=== PATIENT | male | born 1985 | race Caucasian/White ===

== ENCOUNTER 2016-05-22 08:02 | Outpatient (CLI) | payer BC ==
[2016-05-22 08:22] LABS: BASOPHILS % 0.5 (0.0-1.5); EOSINOPHILS % 2.8 % (0.0-6.8); LYMPHOCYTES # 1.5 # k/uL (0.6-4.0); MEAN CORPUSCULAR HEMOGLOBIN 30.9 pg (28.0-34.0); MONOCYTES # 0.2 # k/uL (0.0-0.9); MONOCYTES % 5.1 % (0.0-11.0); NEUTROPHILS # 1.7 # k/uL (1.4-7.7)
[2016-05-22 08:44] LABS: eGFR (African) > 60; eGFR (Non-African) > 60
[2016-05-22 19:21] LABS: LIPASE 27 U/L (13-60)
== END 2016-05-22 08:03 ==
LOC: LAB 08:02
PROVIDERS: ATTEND Physician Assistant
DX: R10.12 Left upper quadrant pain (principal); Z00.00 Encounter for general adult medical examination without abnormal findings
CPT/HCPCS: 36415; 80053; 80061; 82150; 83690; 85025

== ENCOUNTER 2016-05-29 16:34 | Outpatient (CLI) | payer BC ==
[2016-05-29 16:50] LABS: BASOPHILS % 0.6 (0.0-1.5); EOSINOPHILS % 2.1 % (0.0-6.8); LYMPHOCYTES # 2.3 # k/uL (0.6-4.0); MEAN CORPUSCULAR HEMOGLOBIN 30.7 pg (28.0-34.0); MONOCYTES # 0.3 # k/uL (0.0-0.9); MONOCYTES % 5.5 % (0.0-11.0); NEUTROPHILS # 2.3 # k/uL (1.4-7.7)
== END 2016-05-29 16:35 ==
LOC: LAB 16:34
PROVIDERS: ATTEND Family Medicine
DX: D70.9 Neutropenia, unspecified (principal)
CPT/HCPCS: 36415; 85025

== ENCOUNTER 2016-06-23 07:58 | Day surgery (SDC) | payer BC ==
[2016-06-23] MEDS ORDERED: PROPOFOL 200 MG/20 ML VIAL IV ONE (08:00)
[2016-06-23] MEDS ORDERED: LACTATED RINGERS 1,000 ML IV.SOLN IV ONE (08:00)
[2016-06-23] MEDS ORDERED: SALINE FLUSH 10 ML DISP.SYRIN IVF ONE (08:00)
[2016-06-23] MEDS ORDERED: LIDOCAINE HCL/PF 2% 100 MG/5 ML VIAL IJ ONE (08:00)
--- NOTE | 2016-06-24 11:53 | GI Report ---
REFERRING PHYSICIAN: Dr. Yolanda Seals [employer] MEMBER: Al Lubin MD PROCEDURE MEDICATION: Propofol as per anesthesia. INDICATIONS: Patient is a 31-year-old who has been having a lot of epigastric discomfort. He says he gets bloated and distended and has some burning. He does take an occasional Advil. On weekends, he might have 4 or 5 mixed drinks. He denies tobacco or chewing tobacco. He denies vomiting. He denies blood in his stool. He denies changes in his bowel habits. Because of persistent discomfort and acid foods may tend to make it worse, he is referred for an upper endoscopy. PROCEDURE PERFORMED: Endoscopy with biopsies. PROCEDURE: An Olympus video endoscope was passed to the esophagus under direct visualization. He has grade 1 esophagitis of the GE junction. The stomach is entered. He has kind of a lax GE junction. In the body and antrum, he has moderate gastritis with some erythema and edema and friability. No ulceration. Biopsies were taken for KALANI test and for pathology. Duodenal bulb, first and second part of the duodenum, the villi grossly looks normal. The patient tolerated the procedure well. FINDINGS: 1. Moderate gastritis. Biopsies are pending. 2. Grade 1 esophagitis. RECOMMENDATIONS: 1. I would kind of cut the alcohol on weekends in half. 2. I will have him take a PPI before meals and an antacid at bedtime. 3. Follow up biopsies for H. Pylori particularly. 4. Avoid Advil. See if he could take acetaminophen if he has headaches or pain. 5. His chemistries were normal. 6. Would possibly cut back on gluten in the diet. 7. Follow up with Dr. Seals. cc: Dr. Yolanda MCKEON
== END 2016-06-23 08:00 ==
LOC: OPSURG 07:58
PROVIDERS: ATTEND Internal Medicine Gastroenterology
DX: R10.9 Unspecified abdominal pain (principal); K20.9 Esophagitis, unspecified; K29.70 Gastritis, unspecified, without bleeding
CPT/HCPCS: 43235; J2001; J2704; J7120; S1016

== ENCOUNTER 2016-10-08 17:30 | Outpatient (CLI) | payer BC | END 2016-10-08 17:32 | LOC: LABRHC 17:30 | PROVIDERS: ATTEND Physician Assistant | DX: R30.0 Dysuria (principal) | CPT/HCPCS: 87491; 87591 ==

== ENCOUNTER 2016-11-04 16:53 | Outpatient (CLI) | payer BC | END 2016-11-04 16:54 | LOC: LABRHC 16:53 | PROVIDERS: ATTEND Physician Assistant | DX: R30.0 Dysuria (principal) | CPT/HCPCS: 87086 ==

== ENCOUNTER 2018-06-02 07:20 | Outpatient (CLI) | payer BC ==
[2018-06-03 08:48] LABS: eGFR (Non-African) > 60
== END 2018-06-02 07:22 ==
LOC: LAB 07:20
PROVIDERS: ATTEND Family Medicine
DX: Z00.00 Encounter for general adult medical examination without abnormal findings (principal)
CPT/HCPCS: 36415; 80053; 80061